=== PATIENT | female | born 1960 | race Caucasian/White ===

== ENCOUNTER 2019-10-31 08:29 | Inpatient (IN) | payer BC, OTHER ==
[~2019-10-31] VITALS: Ht 172.7 cm; Wt 85.7 kg
[~2019-10-31 08:29] MED LIST: ADVIL200 MG PO; AUGMENTIN 875-1 EACH PO; ESTRACE42.5 GM VAGINAL; IBUPROFEN600 MG PO; LEVOTHYROXINE100 MCG PO; LEVOTHYROXINE150 MCG PO; NORCO 10-325 T1 EACH PO; PERCOCET 5-3251 EACH PO; PHENERGAN25 MG PO; PROZAC20 MG PO
--- NOTE | 2019-10-31 15:41 | NUR ---
10/31/19 1541 Julieta Duarte 1530- PT TO PACU IN SUPINE [id number] WITH ORAL AIRWAY IN PLACE. UNRESPONSIVE TO VERBAL AND TACTILE STIMULI. BREATHING EASY AND UNLABORED ON 6 L O2 VIA SIMPLE MASK. ABDOMINAL DRESSINGS CDI. IV PATIENT, INFUSING LR. JOHN IN PLACE DRAINING CLEAR YELLOW URINE. 1536- PT CONTINUES TO BE UNRESPONSIVE TO TACTILE AND VERBAL STIMULI. ORAL AIRWAY REMAINS IN PLACE. BREATHING EASY AND UNLABORED. SPO2 >95% ON 6 L O2 VIA SIMPLE MASK.
--- NOTE | 2019-10-31 16:25 | NUR ---
PT ARRIVED. PT RESTING WITH RESPIRATIONS NOTED. PT HAS 2 SURGERICAL SITES THAT ARE COVERED- ONE IS MID ABDOMINAL AND THE OTHER IS A LAP SITE ON THE RIGHT LOWER QUADREANT- NO DRAINAGE NOTED AT THE SITES AT TIME OF ADMISSION
[2019-10-31] MEDS ORDERED: MOBIC7.5 MG PO (17:36)
--- NOTE | 2019-10-31 17:36 | NUR ---
IN PTS ROOM TO DO SECOND VITALS, PT DENIES PAIN OR NAUSEA AT THIS TIME
[2019-10-31] MEDS ORDERED: VITAMIN D325 MC1 PO (17:37)
--- NOTE | 2019-10-31 17:37 | NUR ---
MED REC COMPLETE
--- NOTE | 2019-10-31 18:35 | NUR ---
MOVED PT TO ROOM 108 DUE TO THE NEED FOR THE CLOSER ROOM FOR ANOTHER PT
--- NOTE | 2019-10-31 19:24 | NUR ---
SHIFT REPORT RECEIVED FROM MELINA ULRICH. PT RESTING IN BED, WATCHING TV. IV FLUIDS INFUSING PER ORDER. NO NEEDS AT THIS TIME. CALL LIGHT IN REACH.
--- NOTE | 2019-10-31 19:39 | NUR ---
RESIDENTIAL DESIGNER ROUNDING NOTE. PT RESTING IN BED AWAKE. REPORTS THAT PAIN AND NAUSEA ARE WELL CONTROLLED. DENIES QUESTIONS OR CONCERNS AT THIS TIME. ICE WATER AND ICE PACK PROVIDED. PT ORIENTED TO ROOM AND CALL LIGHT SYSTEM. TOOTH BRUSH AND TOOTHPAST PROVIDED. PT DECLINES ASSITANCE WITH BRUSHING HER TEETH. CALL LIGHT IN REACH. WHITE BOARD UDPATED.
--- NOTE | 2019-10-31 19:58 | NUR ---
SCHEDULED MED PROVIDED. IV CDI, WNL, FLUSHED WELL. NO NEEDS AT THIS TIME. CALL LIGHT IN REACH.
--- NOTE | 2019-10-31 20:19 | NUR ---
ASSESSMENT COMPLETED. PT DENIES PAIN. BANDAGES CDI. MILD EDEMA STATED TO ABD. SCDs ON, IV FLUIDS INFUSING. SCHEDULED MED PROVIDED. IV CDI, WNL, FLUSHED WELL. JOHN WNL. NO OTHER NEEDS. CALL LIGHT IN REACH.
--- NOTE | 2019-10-31 22:02 | NUR ---
PT RESTING IN BED, EYES CLOSED. IV FLUIDS INFUSING PER ORDER. RR EVEN, UNLABORED. CALL LIGHT IN REACH.
--- NOTE | 2019-11-01 00:22 | NUR ---
PT RESTING IN BED, EYES CLOSED. IV FLUIDS INFUSING PER ORDER. RR EVEN, UNLABORED. CALL LIGHT IN REACH.
--- NOTE | 2019-11-01 01:51 | NUR ---
RN REQUESTED THIS CORPORATE COUNSEL TO DOCUMENT IV FLUID.
--- NOTE | 2019-11-01 01:52 | NUR ---
PATIENT RESTING IN BED, AWAKES UPON ENTRY TO ROOM. RN AT BEDSIDE. PATIENT WASHED HANDS AND FACE WITH WASH CLOTH AND PERFORMED ORAL CARE. PATIENT CALL LIGHT IN REACH. NO FURTHER NEEDS AT THIS TIME.
--- NOTE | 2019-11-01 02:05 | NUR ---
SCHEDULED MED PROVIDED. IV CDI, WNL, FLUSHED WELL. PT REPORTS PAIN 6/10, PRN PAIN MED PROVIDED. INCISIONS WNL, CDI. ABD MILDLY DISTENDED. BOWEL TONES ACTIVE. SCDs ON. IV FLUIDS INFUSING PER ORDER. JOHN WNL. NO OTHER NEEDS AT THIS TIME. CALL LIGHT IN REACH.
--- NOTE | 2019-11-01 04:20 | NUR ---
PT RESTING IN BED, EYES CLOSED. RR EVEN, UNLABORED. CALL LIGHT IN REACH.
--- NOTE | 2019-11-01 04:59 | NUR ---
PATIENT RESTING IN BED, CALL LIGHT IN REACH. RN AT BEDSIDE.
--- NOTE | 2019-11-01 05:42 | NUR ---
PT AWAKE IN BED, WATCHING TV. PAIN 3, "TOLERABLE". NO OTHER NEEDS AT THIS TIME, CALL LIGHT IN REACH.
--- NOTE | 2019-11-01 05:57 | NUR ---
PT SLEPT OFF AND ON THIS SHIFT. IV WNL, FLUSHED WELL. INCISIONS COVERED, CDI. PAIN MANAGED WITH PRN MEDS. PT TOLERATED DIET, IV FLUIDS AND MEDICATION WELL. TOLERATED SCDs WELL. PT SPO2 >92 ON RA ALL SHIFT. VSS. UO APPROX 160ML BELOW SUFFICIENT, PT TOLERATED 1000ML FLUID RESTRICTION WELL. MILD ABD EDEMA AND TENDERNESS PRESENT. BOWEL TONES ACTIVE. PT TOLERATED CLEARS WELL.
--- NOTE | 2019-11-01 06:39 | NUR ---
CALLED MD ON PHONE TO NOTIFY OF PT LOW UO. MD ORDERED D5LR TO BE INCREASED TO 150ML/HR, REMAIN ON CLEAR LIQUIDS AND 1000ML FLUID RESTRICTION. ORDER REPEATED BACK. PT FLUIDS INCREASED PER ORDER.
--- NOTE | 2019-11-01 07:31 | NUR ---
received report from dg busby. pt awake and laying bed. pt has no complaints at this time
--- NOTE | 2019-11-01 07:52 | EKG ---
[facility] [address] [facility] [place] [address] Signed Normal sinus rhythm Normal ECG When compared with ECG of 31-MAR-2018 22:38, QT has shortened Confirmed by TIMOTEO NIETO MD ([id number]) on 11/01/2019 7:52:12 AM Electronically Signed By: TIMOTEO NIETO MD 11/01/19 0752 PATIENT NAME: CASTRO JEFFERY Electrocardiogram DATE OF : 58 PHYSICIAN: TIMOTEO NIETO MD REPORT #: [id number] REPORT IS CONFIDENTIAL AND NOT TO BE RELEASED WITHOUT AUTHORIZATION
--- NOTE | 2019-11-01 08:05 | NUR ---
IN PTS ROOM TO GIVE MORNING MEDS AND DO ASSESSMENT. PT HAS NO COMPLAINTS AT THIS TIME
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
--- NOTE | 2019-11-01 08:11 | OR ---
[facility] [address] [place], [place] [address] Signed DATE OF OPERATION: 10/31/2019 SURGEON: Nettie Morales MD PREOPERATIVE DIAGNOSES: 1. Acute appendicitis. 2. Appendicolith. POSTOPERATIVE DIAGNOSES: 1. Chronic appendicitis with microperforation. 2. Appendicolith. 3. Anterior abdominal wall, pelvic and interloop adhesions. 4. Enterotomy x1. PROCEDURES PERFORMED: 1. Laparoscopic converted to open appendectomy. 2. Enterorrhaphy x1. ESTIMATED BLOOD LOSS: None. FINDINGS: Castro had 4-6 cm of small bowel densely adherent to her previous lower abdominal wall anterior midline incision. Small 4-5 mm enterotomy was developed with the laparoscopic scissors. Consequently, we had to convert to open procedure. We of course repaired that in 2 layers and found that she also had multiple dense interloop adhesions forming a nest of small bowel that took a few minutes to straighten out with our open technique. We also found her appendix deep along the posterior abdominal wall, behind the small bowel and that would have been quite difficult laparoscopically. In the end proved a rudd decision to proceed open. We found that her appendix was indeed necrotic with microperforation and a stone as well. INDICATIONS: Castro is a 59-year-old female, who I have known for many years along with her . She has had trouble in the last 24 hours or so with abdominal pain, mostly in the right lower quadrant. They came to the emergency room earlier today. She is not systemically ill or toxic, but she is certainly was tender deep in the right lower quadrant. White count was elevated and a CT scan showed her inflamed thickened appendix with an appendicolith. There were a couple of bubbles air in that area as well concerning for perforation. We could also see the metal in her lumbar spine from her lumbar fusion. I Electronically Signed By: NETTIE MORALES MD 11/01/19 0811 PATIENT NAME: CASTRO JEFFERY OPERATIVE REPORT DATE OF : 58 REPORT #: [id number] PHYSICIAN: NETTIE MORALES MD PCP: ANA STERLING MD REPORT IS CONFIDENTIAL AND NOT TO BE RELEASED WITHOUT AUTHORIZATION [facility] [address] [place], [place] [address] Signed had been asked to see Castro in the emergency room with respect to the above. I had met with Castro and her , explained above situation. She has a previous periumbilical midline incision from the anterior approach for the lumbar fusion. She has also had a previous 2 C-sections through a lower midline incision as well. I explained to Castro and her this might represent an issue for us with respect to adhesions. Consequently, she might represent that 3% of patients to need a laparoscopic converted to an open appendectomy. I explained that in her case, we would simply use her previous midline periumbilical incision as needed. I reviewed with Castro and her the location of function of the appendix. I explained to them on the CT scan, it was always posterior and knowing that she had an anterior approach for her lumbar fusion. I suspected the appendix might be adherent posteriorly. Indeed it was. I explained that this might contribute to the need for the open procedure. They understand the expected intraop and postop course. We did review the risks including, but not limited to bleeding, infection, scarring, change in contour of the skin, damage to bowel, appendiceal stump leak, postoperative intraabdominal abscess, incisional hernias, and other unforeseen comorbidities. They had expressed understanding and wished to proceed. DESCRIPTION OF PROCEDURE: Castro was taken from our ER over to our day surgery area. From there, then we took her into the operating room and placed her in a supine position under general endotracheal tube anesthesia. She was given preoperative antibiotics along with subcutaneous heparin. SCDs were utilized. A Moyer catheter had been inserted with return of clear yellow urine without difficulty. She was then prepped and draped in the usual sterile fashion. We placed a midline supraumbilical Shamar trocar under direct visualization without difficulty. The camera was inserted. We could see she had some adhesions to her previous lower midline abdominal wall incision. We placed our 10 mm right subcostal trocar site under direct visualization and then we used our laparoscopic Metzenbaum scissors, and we started to take down some filmy adhesions. As we approached the center of the adhesions, we found that indeed there was probably 4-6 cm of small bowel very densely adherent to the anterior abdominal wall. A small enterotomy had been made with the laparoscopic scissors. With that in mind, then we simply converted her to an open. We removed the two trocars and let the gas escape in length in the paraumbilical incision inferiorly with the help of the cautery under direct visualization. We had an additional nurse scrub in for retraction and even then with direct visualization with my hand on the bowel given countertraction, it took a few minutes to remove that small bowel from the anterior abdominal wall with the cautery. We brought up small bowel with multiple interloop adhesions. It took a few minutes to take those down as well. Once that was completed, we simply closed the enterotomy in 2 layers with Vicryl and silk sutures. The lumen to the small bowel was palpably patent. We closed the enterotomy transversely. We then used several moist laps to hold the small bowel all the way and we found that indeed her cecum and the appendix were adherent posteriorly. We held the cecum all the way with a retractor, carefully worked the appendix loose Electronically Signed By: NETTIE MORALES MD 11/01/19 0811 PATIENT NAME: CASTRO JEFFERY OPERATIVE REPORT DATE OF : 58 REPORT #: [id number] PHYSICIAN: NETTIE MORALES MD PCP: ANA STERLING MD REPORT IS CONFIDENTIAL AND NOT TO BE RELEASED WITHOUT AUTHORIZATION [facility] [address] [place], [place] [address] Signed posteriorly, bluntly and with the cautery. We could feel the stone in the appendix and the base of the appendix was somewhat involved in this particular case. We divided the base of the appendix initially with a Pean clamp and a 0 Vicryl tie. We then used much more narrow console and placed a second 0 Vicryl suture down onto the cecum to help secure the appendiceal stump. These 2 ties were probably 3 mm apart. The mesoappendix was then clamped and the appendix was removed. We could see and feel the stone, and we could see that the appendiceal wall was necrotic. Fortunately, there was no abscess. No significant gross spillage in the abdomen whatsoever. We secured the mesoappendix then with a 0 Vicryl suture. The areas were irrigated and suctioned out until clear with warm antibiotic saline solution. We then allowed the cecum in the small bowel back to its position and brought our omentum back down over that area. We then turned our attention to the right subcostal trocar site. We placed a wide malleable retractor underneath that area, used our standard cone to place 0 Vicryl suture x2 on either side of the fascia of this trocar site under direct visualization. These were tied down to close this trocar site primarily. We then closed the periumbilical midline with multiple interrupted #1 PDS [id number] sutures. The wound was irrigated and suctioned out until clear. We injected local anesthetic into the abdominal wall. We then closed the dermis with interrupted 3-0 subcuticular Monocryl sutures. The skin edges were brought together with cj. We used 3-0 Monocryl suture to close the skin and dermis of the right subcostal trocar site. Dry gauze and tape were then applied. Castro's Moyer catheter was left in place. She was weaned from anesthesia, extubated in the OR, and taken to recovery room in stable condition. Nettie Morales MD [facility]/MODL /[id number] cc: MD Ana Syed MD Copies: NETTIE MORALES MD Electronically Signed By: NETTIE MORALES MD 11/01/19 0811 PATIENT NAME: CASTRO JEFFERY OPERATIVE REPORT DATE OF : 58 REPORT #: [id number] PHYSICIAN: NETTIE MORALES MD PCP: ANA STERLING MD REPORT IS CONFIDENTIAL AND NOT TO BE RELEASED WITHOUT AUTHORIZATION [address] [address] Signed ~ Electronically Signed By: NETTIE MORALES MD 11/01/19 0811 PATIENT NAME: CASTRO JEFFERY OPERATIVE REPORT DATE OF : 58 REPORT #: [id number] PHYSICIAN: NETTIE MORALES MD PCP: ANA STERLING MD REPORT IS CONFIDENTIAL AND NOT TO BE RELEASED WITHOUT AUTHORIZATION
--- NOTE | 2019-11-01 09:00 | NUR ---
PROVIDED PT WITH 800MG IBUPROPHEN DUE TO PT HAVING A HEAD ACHEC, ALSO PROVIDED PT WITH 8MG OF ZOFRAN DUE TO PT HAVING ONE BOUT OF EMESIS THIS AM
--- NOTE | 2019-11-01 10:14 | NUR ---
PATIENT WOULD LIKE TO TAKE A SHOWER TODAY. I AM GOING TO SET IT UP. AND FIND A SHOWER CHAIR.
--- NOTE | 2019-11-01 11:10 | NUR ---
3423- PT REQUESTED SOMETHING FOR HER HEADACHE. PT THEN BECAME NAUSEAOUS SO ALLOWED PT TO HAVE THE ZOFRAN WORK. 0775- THIS RN FINALLY BACK INTO ROOM- PT DOESN'T WANT IBUPROPHEN NOW- PT ABLE TO HAVE HER NORCO NOW AND PT STATED THAT WOULD BE BETTER TO TAKE SO SHE CAN TAKE A SHOWER. 8143- MARCIN LOPEZ REMOVED PTS JOHN AT THIS TIME. PT TOLERATED WELL AND EDUCATED ON HOW SHE MIGHT FEEL GOING FORWARD TODAY
--- NOTE | 2019-11-01 11:53 | NUR ---
HELPED PATIENT INTO THE BATHROOM SO SHE COULD TAKE A SHOWER. CHANGED BED LINENS. PATIENT IS FINISHED TAKING SHOWER.
--- NOTE | 2019-11-01 13:50 | NUR ---
IN PTS ROOM TO GIVE AFTERNOON MEDS AND DO ASSESSMENT. PT STATES SHE IS DOING WELL AND HAS NO NAUSEA OR PAIN AT THIS TIME
--- NOTE | 2019-11-01 19:20 | NUR ---
REPORT RECEIVED FROM DAY SHIFT RN. PT LYING IN BED, ALERT AND ORIENTED. WAS AMBULATING IN THE FISHER WITH SPOUSE AND UPON RETURNING TO BED HAD A SMALL EMESIS. PT DENIES PRN N/V, STATES "I THINK I JUST GOT TOO EXCITED". IVF INFUSING. PT DENIES NEEDS. WHITE BOARD UPDATED. CALL LIGHT IN REACH.
--- NOTE | 2019-11-01 20:20 | NUR ---
EVENING ASSESMENT COMPLETE. IV ABX INFUSING. PRN GIVEN FOR 5/10 ABD PAIN. PT DENIES NAUSEA. MIDLINE ABD WELL APPROXIMATED WITH SILKE IN PLACE. NO REDNESS OR DRAINAGE NOTED. OPEN TO AIR. RUQ LAP SITE OPEN TO AIR, NO DRAINAGE NOTED. BOWEL TONES ACTIVE. PT REPORTS SHE IS PASSING GAS. OFFERED FULL LIQUIDS AND PT REFUSED AT THIS TIME. NO FURTHER NEEDS. CALL LIGHT IN REACH.
--- NOTE | 2019-11-01 23:40 | NUR ---
PT RESTING IN BED. DENIES PAIN OR NAUSEA. NO NEEDS AT THIS TIME. CALL LIGHT IN REACH.
--- NOTE | 2019-11-02 02:39 | NUR ---
IV ABX HUNG. PT DENIES PAIN OR NAUSEA. UP TO BR INDEPENDENTLY TO VOID 300 ML CONCENTRATED URINE. IN BED AT THIS TIME. NO FURTHER NEEDS. CALL LIGHT IN REACH.
--- NOTE | 2019-11-02 04:07 | NUR ---
NEW BAG IVF INFUSING. PT RESTING IN BED WITH EYES CLOSED, NAD.
--- NOTE | 2019-11-02 06:26 | NUR ---
PT WITH SMALL EMESIS. PRN ADMINISTERED FOR N/V. PT DENIES PAIN. UP TO BR INDEPENDENTLY TO VOID 250 ML CONCENTRATED URINE. AT SINK TO DO AM CARES. NO FURTHER NEEDS. CALL LIGHT IN REACH.
--- NOTE | 2019-11-02 07:05 | NUR ---
received report from emily busby. pt resting in bed and states that she has no pain or nausea at this time
--- NOTE | 2019-11-02 07:53 | NUR ---
IN PTS ROOM GIVING MORNING MEDS. PT ABLE TO MOVE HERSELF IN BED WELL. PT DENIES PAIN OR NAUSEA. PT STATES THAT SHE NEEDS NOTHING AT THIS TIME.
--- NOTE | 2019-11-02 08:38 | NUR ---
PATIENT ALREADY BRUSHED HER TEETH AND WASHED HER HANDS. PATIENT WAS SITTING UP IN THE CHAIR FOR 45MINS. NOW SHE IS BACK IN BED. SLOWLY EATING HER BREAKFAST. SHE WOULD LIKE TO TAKE A SHOWER SOMETIME TODAY. SET HER UP FOR A SHOWER.
--- NOTE | 2019-11-02 11:11 | NUR ---
pt up to shower at this time
--- NOTE | 2019-11-02 16:18 | NUR ---
IN PTS ROOM TO GIVE ANTIBIOTIC. THIS RN NOTICED THAT THE PT HAD AN EMESIS BAG ON HER BAG, THIS RN ASKED IF THE PT WAS NAUSEOUS, PT STATED THAT SHE WAS BUT SHE WOULD STILL LIKE TO HAVE SOMETHING FOR THAT. THIS RN PROVIDED PT WITH 8MG OF ZOFRAN. PTS INSCION LOOKS GOOD, A BIT SWOLLEN. ASKED PT IF SHE WOULD LIKE A ICE PACK, PT STATED THAT SHE IS COLD AT THIS TIME SO MAYBE A BIT LATER
--- NOTE | 2019-11-02 19:26 | NUR ---
REPORT RECEIVED FROM DAY SHIFT RN. PT SITTING IN RECLINER, ALERT AND ORIENTED. IVF INFUSING. DENIES PAIN. NO NEEDS AT THIS TIME. CALL LIGHT IN REACH. WHITE BOARD UPDATED.
--- NOTE | 2019-11-02 20:30 | NUR ---
PT REQUESTING STOOL SOFTENER. DR. MORALES CALLED, NEW TELEPHONE ORDERS RECEIVED VERIFIED WITH READ BACK METHOD.
--- NOTE | 2019-11-02 20:40 | NUR ---
PT REPORTS NAUSEA. PRN PHENERGAN GIVEN IN 20 ML NS OVER 10 MIN IN PATENT IV. PT DENIES PAIN WITH INFUSION. PT ABLE TO SELF ADMINISTER SUPPOSITORY, PHU WELL. IV ABX INFUSING. PT DENIES PAIN. MIDLINE ABD INCISION WELL APPROXIMATED WITH SILKE. NO DRAINAGE NOTED. BOWEL TONES HYPOACTIVE. PT REPORTS PASSING GAS. DENIES PAIN. WARM BLANKET PROVIDED.
--- NOTE | 2019-11-02 23:05 | NUR ---
PT RESTING IN BED WITH EYES CLOSED, RR EVEN AND UNLABORED. IVF INFUSING.
--- NOTE | 2019-11-03 02:03 | NUR ---
IV ABX INFUSING. PT REPORTS SHE HAS HAD TWO SMALL FORMED BOWEL MOVEMENTS SINCE SUPPOSITORY LAST EVENING. REPORTS NAUSEA HAS IMPROVED. DENIES PAIN. ASSESSMENT COMPLETE. BOWEL TONES ACTIVE. DENIES FURTHER NEEDS. CALL LIGHT IN REACH.
--- NOTE | 2019-11-03 06:19 | NUR ---
PT SLEPT WELL. ALERT AND ORIENTED. USES CALL LIGHT APPROPRIATELY. NAUSEA IMPROVED AFTER THREE SMALL BOWEL MOVEMENTS. MIDLINE ABD INCISION WELL APROXIMATED WITH SILKE. NO REDNESS OR DRAINAGE. LAP SITE RUQ, NO REDNESS OR DRAINAGE. BOTH SURGICAL SITES OPEN TO AIR. BOWEL TONES ACTIVE. PT DENIES PRN FOR PAIN. FULL LIQUID DIET WITH POOR APPETITE. RA. AFEBRILE.
--- NOTE | 2019-11-03 07:20 | NUR ---
RECEIVED REPORT FROM KENNY ULRICH. PT AWAKE AND ALERT THIS AM. IN PTS ROOM TO CHECK ON HER. PT STATES THAT SHE HAS NO CONCERNS THIS AM
--- NOTE | 2019-11-03 09:50 | NUR ---
PATIENT IS IN A NEW ROOM THIS MORNING, ENOC WAS IN RM 108, PATIENT IS UP ON THE COUCH AND IS ENJOYING HER BREAKFAST, VITAL SIGNS WILL BE DONE SHORTLY
--- NOTE | 2019-11-03 11:04 | NUR ---
PT ALERT, ORIENTED AND VISITING WITH HER . PT FEELS INFORMED AND HAS NO NEEDS AT THE MOMENT. DESIRES TO NOT HAVE VISITORS. EXTENDED A BLESSING
--- NOTE | 2019-11-03 13:52 | NUR ---
IN PTS ROOM TO GIVE AFTERNOON ANTIBIOTIC. PT STATES THAT SHE ISN'T INTERESTED IN A ICE PACK AT THIS TIME FOR THE MINIMAL SWELLING FROM THE MIDLINE INSISCION. PT DENEIES ANY PAIN OR NAUSEA AT THIS TIME. PT DID NOT ORDER LUNCH AND STATES THAT SHE DOESN'T HAVE MUCH OF AN APPETITE.
--- NOTE | 2019-11-03 15:53 | NUR ---
BEDSIDE REPORT FROM MELINA - IV ABX FUSING. DENIES PAIN AND NEEDS - CALL LIGHT IN REACH.
--- NOTE | 2019-11-03 17:00 | NUR ---
PT UP TO SHOWER TOLLERATED WELL - NOW UP IN CH, ICE TO ABD. IV FUSING MANTINCE FLUID AT 100/HR. DENIES NEEDS, CALL LIGHT IN REACH.
--- NOTE | 2019-11-03 17:57 | NUR ---
PT SH, CH AND UP IN RM TODAY, DENIES PAIN MEDS ALL DAY. POOR APPETITE WITH BM NOTED TODAY. ICE TO ABD, AND SILKE MIDLINE OPEN TO AIR CDI WITH PUNCTURE WOUND TO SIDE. FEELING WELL, ENC TO EAT DINNER. IV D5LR@100 WITH ABX FUSING.
--- NOTE | 2019-11-03 19:11 | NUR ---
PATIENT WAS UP IN ROOM, PATIENT WAS NOT READY FOR BED YET, THERE IS NOTHING ELSE TO REPORT AT THIS TIME
--- NOTE | 2019-11-03 19:37 | NUR ---
REPORT RECEIVED FROM DAY SHIFT RN. PT LYING IN BED, ALERT AND ORIENTED. DENIES PAIN OR NAUSEA. IVF INFUSING. NO NEEDS AT THIS TIME. WHITE BOARD UPDATED. CALL LIGHT IN REACH.
--- NOTE | 2019-11-03 21:06 | NUR ---
IN pt ROOM FOR IV START. PRIMARY RN KENNY IN ROOM AT THIS TIME. pt WITH NO REQUESTS OR CONCERNS AT THIS TIME.
--- NOTE | 2019-11-03 21:21 | NUR ---
EVENING ASSESSMENT COMPLETE. IV ABX INFUSING. RIGHT HAND IV DC'D WNL, TIP INTACT. MIDLINE ABD INCISION WELL APPROXIMATED WITH SILKE. NO REDNESS OR DRAINAGE NOTED. RUQ LAP SITE WNL. PT DENIES PAIN OR NAUSEA. PASSING GAS. TEMP 99.3. ENCOURAGED PT TO USE IS. NO FURTHER NEEDS AT THIS TIME. CALL LIGHT IN REACH.
--- NOTE | 2019-11-04 00:11 | NUR ---
PT RESTING IN BED WITH EYES CLOSED, NAD.
--- NOTE | 2019-11-04 02:45 | NUR ---
IV ABX INFUSING. ASSESSMENT COMPLETE. PT DENIES PAIN OR NAUSEA. BOWEL TONES ACTIVE. PT REPORTS SHE HAD A BM. MIDLINE INCISION WELL APPROXIMATED. SILKE INTACT. NO REDNESS OR DRAINAGE NOTED. RUQ LAP SITE WELL APPROXIMATED. NO REDNESS OR DRAINAGE NOTED. BOTH INCISIONS OPEN TO AIR. TEMP 98.8. PT DENIES FURTHER NEEDS. CALL LIGHT IN REACH.
--- NOTE | 2019-11-04 04:30 | NUR ---
PT RESTING IN BED WITH EYES CLOSED, NAD. RR EVEN AND UNLABORED. CALL LIGHT IN REACH.
--- NOTE | 2019-11-04 05:43 | NUR ---
PT SLEPT WELL. A&O X4. USES CALL LIGHT. INDEPENDENT IN ROOM. S/P OPEN APPY. MIDLINE INCISION WELL APPROXIMATED. SILKE INTACT. OPEN TO AIR. RUQ LAP SITE WNL. BT ACTIVE. BM X 2 THIS SHIFT. IVF. IV ABX. VOID QS.
--- NOTE | 2019-11-04 07:52 | NUR ---
PT AWAKE AND INTERACTIVE AT SHIFT REPORT UP IN THE CHAIR DENIES PAIN, NAUSEA, OR DISCOMFORTS. PERSONAL CARE ITEMS AVAILABLE PT UP INDEPENDANTLY IN THE ROOM. DENIES NEEDS AT THIS TIME, AGREES TO AMBULATE SEVERAL TIMES THIS SHIFT
--- NOTE | 2019-11-04 09:21 | NUR ---
PATIETN IN BED WATCHING TV. CALL LIGHT IN REACH. NO FURTHER NEEDS AT THIS TIME.
--- NOTE | 2019-11-04 09:53 | NUR ---
DR MORALES IN TO SEE PT THIS MORNING IV FLUIDS DECREASED. PT REPORTS SOME GENERALIZED EDEMA, HANDS AND FEET ARE A LITTLE PUFFY. DOES NOT EAT ANY BREAKFAST HAS SIPS OF FLUIDS ONLY STATING SHE IS NOT HUNGRY. DENIES NAUSEA OR DISCOMFORT. REMINDED PT IF SHE WANTS SOMETHING BEFORE NOON MEAL JUST NOTIFY STAFF. PRESENT PT CONTINUES UP IN THE CHAIR
--- NOTE | 2019-11-04 10:30 | NUR ---
Spoke with Regi. She is feeling better. States she would normally be haying, but plans on taking it easy. Thinks the will dc her tomrrow. Denies needs for dc. Will go home with her spouse.
--- NOTE | 2019-11-04 11:00 | NUR ---
CM assessment completed. Pt lives with spouse. Has a place on [address], she states she would normally be haying. Plans on going home to rest. Does not use any DME. House is a 2 story with steps and hand rails. Is hoping Dr. Aguilar will dc her tomorrow. Denies needs for dc as she will go home with her spouse.
--- NOTE | 2019-11-04 12:34 | NUR ---
PT HAS REGULAR LUNCH TOLERATES THIS WELL WITH NO NAUSEA OR DISCOMFORT. SHE HAS AMBULATED THE FISHER SEVERAL TIMES THIS SHIFT AND CONTINUES TO DENY ANY PAIN. TAKING A SHOWER AND DOING SELF CARES
--- NOTE | 2019-11-04 13:27 | NUR ---
PT ALERT, ORIENTED AND EXPRESSED GREAT APPRECIATION FOR THE CARE SHE HAS RECEIVED HERE AT [facility].HAD PLEASANT VISIT, QUESTIONS ASKED AND ANSWERED. I EXTENDED A BLESSING.
--- NOTE | 2019-11-04 15:03 | NUR ---
PATIENT IN BED RESTING WITH EYES CLOSED. KELLIE LIGHT IN REACH. NO FURTHER NEEDS AT THIS TIME.
--- NOTE | 2019-11-04 16:18 | NUR ---
PT RESTING IN BED EYES CLOSED
--- NOTE | 2019-11-04 18:30 | NUR ---
PATIENT IN CHAIR, IN ROOM. CALL LIGHT IN REACH. NO FURTHER NEEDS AT THIS TIME.
--- NOTE | 2019-11-04 19:10 | NUR ---
REPORT RECEIVED FROM DAY SHIFT RN. PT SITTING IN RECLINER, ALERT AND ORIENTED. IN ROOM. DENIES PAIN OR NAUSEA. NO NEEDS AT THIS TIME. WHITE BOARD UPDATED. CALL LIGHT IN REACH.
--- NOTE | 2019-11-04 19:24 | NUR ---
PT AMB IN HALLWAY INDEPENDENTLY WITH SPOUSE. PHU WELL.
--- NOTE | 2019-11-04 21:12 | NUR ---
EVENING ASSESSMENT COMPLETE. PRN GIVEN FOR "ACHINESS" RELATED TO LYING IN BED. DENIES NAUSEA. MIDLINE INCISION WELL APPROXIMATED, SILKE INTACT. NO REDNESS OR DRAINAGE. OPEN TO AIR. RUQ LAP SITE EDGES INTACT. NO REDNESS OR DRAINAGE. GENERALIZED EDEMA NOTED BUE AND BLE. PT REPORTS BM THIS EVENING. BT ACTIVE. NO FURTHER NEEDS. CALL LIGHT IN REACH.
--- NOTE | 2019-11-05 01:37 | NUR ---
PT LYING IN BED RESTING WITH EYES CLOSED, NAD.
--- NOTE | 2019-11-05 03:50 | NUR ---
PT RESTING IN BED WITH EYES CLOSED. RR EVEN AND UNLABORED. NEW BAG IVF INFUSING. CALL LIGHT IN REACH.
--- NOTE | 2019-11-05 06:07 | NUR ---
PT SLEPT WELL. ALERT AND ORIENTED. USES CALL LIGHT APPROPRIATELY. INDEPENDENT IN ROOM. S/P OPEN APPY. MIDLINE INCISION WITH SILKE INTACT. OPEN TO AIR. NO REDNESS OR DRAINAGE. RUQ LAP SITE INTACT. BT ACTIVE. BM THIS SHIFT. PT WITH POOR APPETITE. VOID QS. IVF. PRN X1 FOR GENERAL "ACHINESS". DENIES NAUSEA.
--- NOTE | 2019-11-05 07:36 | NUR ---
Pt in bed watching TV, alert and oriented x4. Abdominal incision is well approximated, open to ra with cj intact. New order obtained to remove cj. Pt denies pain and reports she is doing well. No needs at this time. Call light within reach.
--- NOTE | 2019-11-05 07:40 | NUR ---
PATIENT SITTING UP IN BED. WHITE BOARD UPDATED. CALL LIGHT WITHIN REACH. NO OTHER NEEDS AT THIS TIME
--- NOTE | 2019-11-05 07:47 | DS ---
[facility] [address] [place], [place] [address] Signed ADMISSION DATE: 10/31/2019 DISCHARGE DATE: 11/04/2019 FINAL DIAGNOSES: 1. Necrotic appendicitis with microperforation. 2. Intraabdominal adhesions. 3. Enterotomy x1. PROCEDURES: 1. Laparoscopic converted to open appendectomy. 2. Enterorrhaphy x1. HISTORY OF PRESENT ILLNESS: Castro is a 59-year-old female, I have known for quite some time. She came into the emergency room with right lower quadrant abdominal pain over the last 24 hours. She was not systemically ill or toxic. She was tender in the right lower quadrant. White count was elevated. CT scan showed the appendix all the way in the back with a stone. She has also had a previous lumbar fusion through an anterior approach along with 2 C-sections as well through her lower midline incision. Consequently, I was asked to admit her as a general surgeon on-call. HOSPITAL COURSE: Castro was admitted as above and started on antibiotics. We took Castro to the operating room on the same day and converted from a laparoscopic to an open appendectomy. She had small bowel very dense adherent to her previous lower midline incision. She did have 1 enterotomy, which we repaired in 2 layers in a transverse fashion. She had quite a bit of adhesions posteriorly from the lumbar fusion. Consequently, we did not rotate the cecum and small bowel up as usual. We went down all the way posteriorly, divided the appendix, and removed it in that manner. Postoperatively, she has done well. She has been on expected postop course. We left her on antibiotics for a few days here in the hospital. Her white counts returned to normal. She has regained her GI function. She has had multiple bowel movements now and lots of flatus. She is tolerating soft diet and ambulating quite well. Her exam is quite benign. Her abdomen is soft, flat, nontender and her incision is healing well without any local signs or symptoms of infection. Consequently, we are going to be discharging her to home. DISCHARGE PLANS AND MEDICATIONS: Castro will be discharged home with prescription for [place] 5/325 one tablet p.o. q.6 hours p.r.n. for severe postoperative pain. We will dispense 15 tablets with no refills. She can use Tylenol, ibuprofen, or Aleve p.r.n. for [id number] postoperative pain. She can purchase that [id number]. She can continue a soft Electronically Signed By: NETTIE MORALES MD 11/05/19 0747 PATIENT NAME: CASTRO JEFFERY DISCHARGE SUMMARY DATE OF : 58 REPORT #: [id number] PHYSICIAN: NETTIE MORALES MD PCP: ALEXYS STERLING MD REPORT IS CONFIDENTIAL AND NOT TO BE RELEASED WITHOUT AUTHORIZATION [address] [address] Signed diet at home. We are going to remove all her cj here in the hospital prior to discharge. She is welcome to perform her activities of daily living including walking up and down stairs and showering and bathing as usual. I have asked her not to be heavy pushing or lifting over 20 pounds. She needs to be very careful at the ranch over the next month as she heals. I will see her back in the office in about 3 to 7 days. She has expressed understanding and agrees above plan. Nettie Morales MD ALB/MODL /[id number] cc: MD Nettie Mcknight MD Copies: NETTIE MORALES MD ~ Electronically Signed By: NETTIE MORALES MD 11/05/19 0747 PATIENT NAME: CASTRO JEFFERY DISCHARGE SUMMARY DATE OF : 58 REPORT #: [id number] PHYSICIAN: NETTIE MORALES MD PCP: ALEXYS STERLING MD REPORT IS CONFIDENTIAL AND NOT TO BE RELEASED WITHOUT AUTHORIZATION
--- NOTE | 2019-11-05 08:11 | NUR ---
All 27 cj removed from midline abdominal incision. Incision well approx, healing very well, no drainage. Pt tolerated well. Abdominal incision remains open to ra.
[2019-11-05] MEDS ORDERED: NORCO 5-325 TA1 EACH PO (08:17)
--- NOTE | 2019-11-05 08:18 | NUR ---
PATIENT SITTING UP IN BED. PATIENT REFUSED TO TAKE A SHOWER TODAY BECAUSE SHE IS GOING TO BE DISCHARGE AND PREFERS TO TAKE A SHOWER AT HOME. CALL LIGHT WITHIN REACH. NO OTHER NEEDS AT THIS TIME
--- NOTE | 2019-11-05 08:59 | NUR ---
PATIENT SITTING UP IN CHAIR. VITAL SIGNS AND I&O DONE. CALL LIGHT WITHIN REACH. NO OTHER NEEDS AT THIS TIME
--- NOTE | 2019-11-05 11:01 | PATH ---
[facility] [address] [facility] [place] [address] Signed SPECIMEN(S): A APPENDIX SPECIMEN SOURCE: A. APPENDIX CLINICAL HISTORY: Appendicitis. FINAL PATHOLOGIC DIAGNOSIS: Appendix, appendectomy: - Acute appendicitis with focal microscopic perforation. NAL:cml:C2NR MICROSCOPIC EXAMINATION: Histologic sections of all submitted blocks are examined by light microscopy. These findings, together with the gross examination, support the pathologic diagnosis. GROSS DESCRIPTION: The specimen, labeled "SM, A," and designated on the requisition "appendix," is received in formalin and consists of Specimen: Appendix with mesoappendix. Dimensions: 4.8 cm long, 1.0 cm in diameter with attached yellow, adipose mesoappendix up to 2.3 cm wide Serosa: Dark brown, ragged with fat covering and an area of arroyo exudate. Perforation: Not grossly identified. Inking: The proximal margin is without a staple line and is inked black. Mucosa: Dark brown. Fecalith: The lumen contains a brown, 3.2 cm long, up to 0.6 cm in diameter, firm fecalith involving the proximal margin. Additional: None. Forestry Instructor sections are submitted in cassette (A1). AI (under the direct supervision of a pathologist) The Gross Description was prepared using a voice recognition system. The report was reviewed for accuracy; however, sound-alike word errors, addition and/or deletions may occur. If there is any question about this report, please contact Client Services. PERFORMING LABORATORY: The technical component was performed by [employer], [address] [place] [id number] ([employer] Machine Assembler: Dolores Perez MD; CLIA# [id number]). PATIENT NAME: CASTRO JEFFERY PATHOLOGY DATE OF : 58 REPORT #: [id number] PHYSICIAN: HAILEE PATHOLOGY PCP: ALEXYS STERLING MD REPORT IS CONFIDENTIAL AND NOT TO BE RELEASED WITHOUT AUTHORIZATION [facility] [address] [place], [place] [address] Signed Professional interpretation was performed by [facility], [address] [address] (CLIA# [id number]). Diagnostician: Emilie Lopez MD Pathologist Electronically Signed 11/05/2019 Copies: ~ PATIENT NAME: CASTRO JEFFERY PATHOLOGY DATE OF : 58 REPORT #: [id number] PHYSICIAN: HAILEE PATHOLOGY PCP: ALEXYS STERLING MD REPORT IS CONFIDENTIAL AND NOT TO BE RELEASED WITHOUT AUTHORIZATION
--- NOTE | 2019-11-05 11:04 | NUR ---
PT DRESSED, SITTING ON COUCH WITH TIP. PT IS READY FOR DC, EXPRRESSED SEVERAL TIMES REGARDING THE WONDERFUL CARE SHE FEELS SHE RECEIVED AT [facility]. PT WILL DC HOME. WHEELED PT OUT TO VEHICLE, GAVE BLESSING
== END 2019-11-05 10:35 | disposition home or self-care (01) | DRG 340 ==
LOC: ED 08:29 → MS 08:30
PROVIDERS: ADMIT Colon & Rectal Surgery
PROC: 0WJG4ZZ Inspection of Peritoneal Cavity, Percutaneous Endoscopic Approach (ICD-10-PCS; 2019-10-31)
PROC: 0DTJ0ZZ Resection of Appendix, Open Approach (ICD-10-PCS; principal; 2019-10-31 13:00)
DX: K35.32 Acute appendicitis with perforation, localized peritonitis, and gangrene, without abscess (principal); K38.1 Appendicular concretions; E03.9 Hypothyroidism, unspecified; F32.9 Major depressive disorder, single episode, unspecified; Z53.31 Laparoscopic surgical procedure converted to open procedure; Z20.828 Contact with and (suspected) exposure to other viral communicable diseases; Z78.0 Asymptomatic menopausal state; Z79.899 Other long term (current) drug therapy
CPT/HCPCS: 00840; 36415; 74177; 80048; 80053; 81001; 83690; 83735; 84100; 85025; 93005; 93010; 96361; 96375; 99285-25; C9113; C9803; J0696; J1100; J1170; J1644; J1650; J1885; J2001; J2405; J2543; J2550; J2704; J3010; J7030; J7121; Q9967; U0002